=== PATIENT | male | born 1960 | race African-American/Black ===

== ENCOUNTER 2016-08-23 07:27 | Emergency (ER) | payer OTHER ==
--- NOTE | ~2016-08-23 | CT4 ---
[facility] A Service of [facility] / [facility] RADIOLOGY TEXT RESULTS PATIENT: AMANDA ROGERS LOCATION: SED : 64 UNIT #: [id number] AGE: [address]: Lamin Ramirez MD SEX: M ORDER DR: [id number] [address] [id number] MR#: [id number] Acc #: [id number] NAME: AMANDA ROGERS : 1960 SEX: M STUDY DATE/TIME: 08/23/2016 8:31 UNIT: SED ROOM: STUDY DESCRIPTION: CT Abd and Pelv Wo Cont Attending Physician: Lamin Ramirez M.D. Referring Physician: Lamin Ramirez M.D. Ordering Physician: [id number] Ulisses Ramirez Primary Care Physician: Primary Care Physician No MEDICAL IMAGING REPORT This report is preliminary unless electronic signature is present. EXAM CT abdomen and pelvis without contrast INDICATIONS Left-sided abdominal pain for [address] of the abdomen and pelvis was performed without contrast. Coronal and sagittal reformatted images were obtained. No comparison studies are available. This CT exam was performed with one or more of the following radiation dose reduction techniques: automatic exposure control, adjustment of mA and/or kV according to patient size, and iterative reconstruction. FINDINGS The lung bases are clear. There are small cysts within the liver. The gallbladder is unremarkable. The spleen is unremarkable. The kidneys, adrenal glands and pancreas are unremarkable. Pelvis: The colon is unremarkable. The appendix is normal. There is some nonspecific thickening of the urinary bladder, however this may be due to under distension. Small fat-containing inguinal hernias bilaterally. The bone windows demonstrate degenerative changes of the lumbar spine and SI joints. IMPRESSION There is no acute intraabdominal or pelvic abnormality. Dictated by... Les Benites M.D. [facility] A Service of [facility] / [facility] RADIOLOGY TEXT RESULTS PATIENT: AMANDA ROGERS LOCATION: SED : 64 UNIT #: [id number] AGE: [address]: Lamin Ramirez MD SEX: M ORDER DR: THIS IS AN ELECTRONICALLY VERIFIED REPORT Les Benites M.D. at 08/26/2016 7:37 AM Monik TD: 08/23/2016 09:26 JOB #: [id number] MEDICAL IMAGING REPORT Page 1 of 1
[~2016-08-23 07:27] MED LIST: ALLEGRA180 MG PO; CENTRUM PO; GEODON80 MG PO; LORTAB 10-5001 EACH PO; LYRICA PO; TOPIRAMATE100 MG PO; VIMPAT100 MG PO; VITAL-D RX TABL1 TAB PO; ZOCOR PO; [UNRECOGNIZED DRUG - OTHER] PO
[2016-08-23] MEDS ORDERED: VITAMIN D (07:38)
[2016-08-23] MEDS ORDERED: VITAMIN C (07:38)
[2016-08-23] MEDS ORDERED: ASPIRIN PO (07:38)
[2016-08-23 08:39] LABS: URINE SOURCE CLEAN CATCH
[2016-08-23 08:42] LABS: URINE APPEARANCE CLEAR; URINE BILIRUBIN NEG (NEG); URINE BLOOD NEG (NEG); URINE COLOR YELLOW; URINE GLUCOSE NEG (NORM); URINE KETONE NEG (NEG); URINE LEUKOCYTE ESTERASE NEG (NEG); URINE NITRATE NEG (NEG); URINE PROTEIN NEG (NEG); URINE UROBILINOGEN 0.2 MG/DL (NORM)
[2016-08-23 08:43] LABS: MICRO INDICATED? NO
[2016-08-23 08:44] LABS: BASOPHIL# 0.1 X10e3 (0-0.3); BASOPHIL% 0.9 % (0-2.5); EOSINOPHIL# 0.2 X10e3 (0-0.7); EOSINOPHIL% 2.5 % (0.0-7.0); HEMATOCRIT 45.5 % (38.0-50.0); HEMOGLOBIN 15.1 gm/dL (13.0-16.0); LYMPHOCYTE# 1.5 X10e3 (1.0-3.5); LYMPHOCYTE% 19.3 % (17.0-45.0); MEAN CELL VOLUME 82.5 FL (83-96); MEAN CORPUSCULAR HEMOGLOBIN 27.3 PG (28-34); MEAN CORPUSCULAR HGB CONC 33.1 g/dL (30-36); MEAN PLATELET VOLUME 9.1 FL (6.5-11.5); MONOCYTE# 0.6 X10e3 (0-1.0); MONOCYTE% 8.1 % (3.0-12.0); NEUTROPHIL# 5.5 X10e3 (1.5-7.1); NEUTROPHIL% 69.2 % (40-75); PLATELET COUNT 186 X10e3 (140-420); RED BLOOD COUNT 5.52 X10e (3.90-5.60); WHITE BLOOD COUNT 7.9 X10e3 (4.0-10.5)
[2016-08-23 08:46] LABS: DIFF IND NO
[2016-08-23 09:00] LABS: ALBUMIN SERUM 4.4 g/dL (3.5-5.0); ALKALINE PHOSPHATASE 67 U/L (32-92); ALT (SGPT) 37 U/L (10-40); AMYLASE 25 U/L (0-46); AST (SGOT) 31 U/L (10-42); BILIRUBIN,TOTAL 0.3 mg/dL (0.2-2.0); BLOOD UREA NITROGEN 12 mg/dL (9-23); CARBON DIOXIDE 27 mmol/L (22-31); CHLORIDE 107 mmol/L (100-111); CREATININE SERUM 1.1 mg/dL (0.6-1.4); GLOM FILT RATE Estimated 87.8 mL/min (>60); GLUCOSE FASTING 98 mg/dL (70-110); LIPASE 29 U/L (22-51); POTASSIUM 3.9 mmol/L (3.5-5.1); PROTEIN TOTAL SERUM 6.9 g/dL (6.0-8.3); SODIUM 138 mmol/L (135-145)
[2016-08-23 09:01] LABS: BILIRUBIN, DIRECT <0.1 mg/dL (0.0-0.2); BILIRUBIN,INDIRECT 0.2 mg/dL (0.0-0.9)
== END 2016-08-23 09:36 | disposition home or self-care (01) ==
LOC: SED 07:27
PROVIDERS: Emergency Medicine
DX: R10.32 Left lower quadrant pain (principal); Z79.899 Other long term (current) drug therapy; Z88.8 Allergy status to other drugs, medicaments and biological substances
CPT/HCPCS: 36415; 74176; 80048; 80076; 81003; 82150; 83690; 85025; 96372; 96374; 99284; J0500; J1885